=== PATIENT | male | born 1970 | race African-American/Black ===

== ENCOUNTER 2017-02-23 11:42 | Emergency (ER) | payer SELFPAY ==
[~2017-02-23] VITALS: Ht 170.2 cm; Wt 59.0 kg
[2017-02-23 12:10] VITALS: BP 98/64
--- NOTE | 2017-02-23 12:54 | RAD ---
3 views right thumb 02/23/2017 2:07 PM Indication: thumb injury Comparison: None Findings: There is dislocation of the right, first distal phalanx. The distal phalanx is dorsally dislocated with respect to the middle phalanx. Mild overlap is seen on AP view. No associated fracture is identified. Overlying soft tissue edema and mild soft tissue deformity noted. Impression: Dislocation of the first distal phalanx. Postreduction radiographs recommended.
--- NOTE | 2017-02-23 13:24 | PHYS DOC ---
Past Medical History Past Medical History: No Pertinent History Past Surgical History: Tonsillectomy Alcohol Use: Occasionally Drug Use: None Adult General Chief Complaint Chief Complaint: THUMB HPI HPI Patient is a 46 year old male presents the ED complaining of right thumb injury times one day. Patient states that he was lifting a car with a verito and the verito fell over on his finger. States pain is 6 out of 10. Describes the pain as sharp. Patient unable to flex finger. Denies laceration, fever, nausea/ vomiting, head/neck injury, LOC or headache. Review of Systems Review of Systems Constitutional: Denies fever or chills [] Eyes: Denies change in visual acuity, redness, or eye pain [] HENT: Denies nasal congestion or sore throat [] Respiratory: Denies cough or shortness of breath [] Cardiovascular: No additional information not addressed in HPI [] GI: Denies abdominal pain, nausea, vomiting, bloody stools or diarrhea [] : Denies dysuria or hematuria [] Musculoskeletal: Complains of right thumb pain. Denies back pain. [] Integument: Denies rash or skin lesions [] Neurologic: Denies headache, focal weakness or sensory changes [] Endocrine: Denies polyuria or polydipsia [] Allergies Allergies Allergies Coded Allergies Type Severity Reaction Last Updated Verified No Known Drug Allergies 02/23/17 No Physical Exam Physical Exam Constitutional: Well developed, well nourished, no acute distress, non-toxic appearance. [] HENT: Normocephalic, atraumatic, bilateral external ears normal, oropharynx moist, no oral exudates, nose normal. [] Eyes: PERRLA, EOMI, conjunctiva normal, no discharge. [] Neck: Normal range of motion, no tenderness, supple, no stridor. [] Cardiovascular:Heart rate regular rhythm, no murmur [] Lungs & Thorax: Bilateral breath sounds clear to auscultation [] Abdomen: Bowel sounds normal, soft, no tenderness, no masses, no pulsatile masses. [] Skin: Warm, dry, no erythema, no rash. [] Back: No tenderness, no CVA tenderness. [] Extremities: MILD RIGHT THUMB DIP TENDERNESS/SWELLING. No cyanosis, no clubbing , ROM intact, no edema. [] Neurologic: Alert and oriented X 3, normal motor function, normal sensory function, no focal deficits noted. [] Psychologic: Affect normal, judgement normal, mood normal. [] Current Patient Data Vital Signs Vital Signs Date Time Temp Pulse Resp B/P (MAP) Pulse Ox O2 Delivery O2 Flow Rate FiO2 02/23/17 12:10 98.8 68 20 98 Room Air 98.8 EKG EKG [] Radiology/Procedures Radiology/Procedures PROCEDURE: FINGER(S) RIGHT 3 views right thumb 02/23/2017 2:07 PM Indication: thumb injury Comparison: None Findings: There is dislocation of the right, first distal phalanx. The distal phalanx is dorsally dislocated with respect to the middle phalanx. Mild overlap is seen on AP view. No associated fracture is identified. Overlying soft tissue edema and mild soft tissue deformity noted. Impression: Dislocation of the first distal phalanx. Postreduction radiographs recommended.[] Course & Med Decision Making Course & Med Decision Making Pertinent Labs and Imaging studies reviewed. (See chart for details) []Unable to reduce patient's thumb with manual manipulation and also unable to do so by re-creating the mechanism of the injury. Finger placed in thumb spica. NV intact post placement. Discussed case with plastic surgery consultation at . Asked that patient is nothing by mouth after midnight and presents to the clinic tomorrow morning at 8 AM. Discussed follow-up tomorrow morning with plastic surgery at their clinic and Dr. Josse Gauthier. Patient provided with contact information and education for follow-up. Patient states he will call at discharge and give them his information as directed. The importance of follow-up and reasons to return to the ED. Patient understands and agrees with plan. Dragon Disclaimer Dragon Disclaimer This electronic medical record was generated, in whole or in part, using a voice recognition dictation system. Departure Departure Impression: Primary Impression: Dislocated thumb Disposition: 01 HOME, SELF-CARE Condition: STABLE Referrals: NO PCP (PCP) Patient Instructions: Finger Dislocation Additional Instructions: Plastics Dr. Josse Gauthier Tomorrow morning at 8 AM. Nothing by mouth after midnight. [phone] Clinic Scripts Hydrocodone/Apap 5-325 (NORCO 5-325 TABLET) 1 Each Tablet 1 TAB PO TID, #8 TAB Prov: URBAN BENEDICT 02/23/17 URBAN BENEDICT Feb 23, 2017 13:24
[2017-02-23] MEDS ORDERED: HYDR-971 PO (14:38)
== END 2017-02-23 15:00 | disposition home or self-care (01) ==
LOC: ER 11:42
DX: S63.124A Dislocation of interphalangeal joint of right thumb, initial encounter (principal); W20.8XXA Other cause of strike by thrown, projected or falling object, initial encounter; Y93.89 Activity, other specified; Y92.89 Other specified places as the place of occurrence of the external cause; Y99.8 Other external cause status
CPT/HCPCS: 26770; 73140; 99284-25

== ENCOUNTER 2021-01-22 07:57 | Emergency (ER) | payer OTHER ==
[~2021-01-22] VITALS: Ht 170.2 cm; Wt 59.9 kg
[~2021-01-22 07:57] MED LIST: HYDR-3164 PO
[2021-01-22 08:01] VITALS: BP 127/99
[2021-01-22] MEDS ORDERED: TETRACAINE 0.5% OPHTH SOLUTION 4ML BOTTLE. ONE (08:10)
[2021-01-22] MEDS ORDERED: FLUORESCEIN OPHTH TEST STRIP. ONE (08:10)
[2021-01-22] MEDS ORDERED: TETRACAINE 0.5% OPHTH SOLUTION 4ML BOTTLE. OS ONE (08:15)
[2021-01-22] MEDS ORDERED: FLUORESCEIN OPHTH TEST STRIP. OS ONE (08:15)
[2021-01-22] MEDS ORDERED: ERYT1OIN3 OS (08:27)
--- NOTE | 2021-01-22 08:29 | PHYS DOC ---
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 He reports progressive symptoms of the last 2 days. Admits to sensitivity to light. Reports eye redness, clear discharge, no pain with extraocular movements, limited visual acuity secondary to pain. He has never had eye surgery for does not wear contact lenses and is otherwise healthy without further complaints. The patient denies nausea, vomiting, fever, chills, chest pain, shortness of breath, abdominal pain, urinary symptoms, cough, or any other complaints. Last tdap 2 years prior. Review of Systems: Review of Systems: ROS otherwise negative except for what was mentioned in HPI Heart Score: C/O Chest Pain: No Current Medications: Current Medications Medications (Trade) Dose Ordered Sig/Aniya Start Time Stop Time Status Last Admin Dose Admin Fluorescein Sodium (Ful-Linda) 1 strip 1X ONCE 01/22/21 08:15 01/22/21 08:16 DC 01/22/21 08:13 1 STRIP Tetracaine HCl (Tetracaine) 1 drop 1X ONCE 01/22/21 08:15 01/22/21 08:16 DC 01/22/21 08:13 1 DROP Allergies: Allergies: Allergies Coded Allergies Type Severity Reaction Last Updated Verified No Known Drug Allergies 01/22/21 No Physical Exam: PE: Constitutional: No acute distress, non-toxic appearance. HENT: Atraumatic, bilateral external ears normal, nose normal. Eyes: PERRLA, EOMI, left conjunctiva is injected, right normal. No pain with extraocular movements, no obvious foreign body seen, corneal uptake is seen with fluorescein stain in the left cornea. Visual acuity: OD: 20/20, OS 20/30, OU 20/13 Neck: Normal range of motion, supple, no stridor. Cardiovascular: Heart rate regular rhythm. 2+ radial pulses Lungs & Thorax: No respiratory distress, symmetrical expansion. Skin: Warm, dry. Extremities: No tenderness, no cyanosis, ROM intact, no edema. Neurologic: Alert and oriented X 3, normal motor function, normal sensory function, no focal deficits noted. Non ataxic gait. GCS 15. Psychologic: Affect normal, judgment normal, mood normal. Current Patient Data: Vital Signs: Vital Signs Date Time Temp Pulse Resp B/P (MAP) Pulse Ox O2 Delivery O2 Flow Rate FiO2 01/22/21 08:01 98.7 105 18 127/99 (108) 98 Room Air 98.7 Course & Med Decision Making: Course & Med Decision Making We will treat patient for corneal abrasion. Return precautions were discussed. Ophthalmology follow-up was provided. My Orders - JULY HUGHES DO Procedure Category Date Status Time Tetracaine 0.5% Ophth PHA 01/22/21 Complete (Tetracaine) 08:15 Fluorescein Eye Test PHA 01/22/21 Complete (Ful-Linda) 08:15 Hydrocodone/Apap PHA 01/22/21 In Process 5/325mg (Lortab 5/325) 08:45 Departure Departure Impression: Primary Impression: Left corneal abrasion Disposition: HOME / SELF CARE / HOMELESS Condition: STABLE Referrals: NO PCP (PCP) MEDICAL[facility]URGICAL EYE [facility], [facility] Patient Instructions: Eye - Corneal Abrasion, [id number] Additional Instructions: You were seen in the emergency department for eye pain and most likely have a corneal abrasion and was caused by trauma to the eye. The pain should improve in the next few days. Apply the drops as prescribed. Return to the ED if you develop worsening pain, vision change, fever, or any other new or concerning symptoms. Scripts Erythromycin Base (Erythromycin) 1 Gm Oint...g. 1 GM OS TID for 5 Days, #1 Prov: JULY HUGHES DO 01/22/21 JULY HUGHES DO Jan 22, 2021 08:29
[2021-01-22] MEDS ORDERED: HYDROcodone/APAP 5/325MG 1 TAB TABLET PO ONE (08:45)
[2021-01-22] MEDS ORDERED: DIPH,PERTUSS(ACELL),TET VAC/PF 0.5 ML SYRINGE. VAX IM ONE (09:00)
== END 2021-01-22 08:37 | disposition home or self-care (01) ==
LOC: ER 07:57
DX: S05.02XA Injury of conjunctiva and corneal abrasion without foreign body, left eye, initial encounter (principal); F17.200 Nicotine dependence, unspecified, uncomplicated; X58.XXXA Exposure to other specified factors, initial encounter; Y93.89 Activity, other specified; Y92.89 Other specified places as the place of occurrence of the external cause; Y99.8 Other external cause status
CPT/HCPCS: 99283